=== PATIENT | male | born 1960 | race Caucasian/White ===

== ENCOUNTER → 2017-06-05 | Outpatient (CLI) | payer OTHER ==
[~2017-06-05] MED LIST: GEMFIBROZIL600 M1; INDERAL 40MG. T40 MG PO; LEVOTHYROXIN0.025 MG; METFORMIN 500M500 M1 PO; TAMSULOSIN HCL0.4 MG PO; TOPIRAMATE50 MG PO
--- NOTE | 2017-06-05 15:12 | RADIOLOGY REPORT PS360 ---
KNEE-4 OR 5 VIEWS-RT HISTORY: RT KNEE PAIN ORDERING PHYSICIAN: JUSTIN MARQUEZ MD PATIENT AGE: 57 years COMPARISON: 01/31/2016 FINDINGS: There are moderate osteoarthritic changes of the medial compartment and patellofemoral joint which is slightly progressed compared to the previous exam. There is mild lateral subluxation of the tibia by approximately 7 mm. No fracture or dislocation. No lytic or blastic change. IMPRESSION: Moderate osteoarthritic changes slightly progressed compared to the previous exam
== END ==
LOC: RAD 13:15
DX: M25.561 Pain in right knee (principal)

== ENCOUNTER → 2017-06-21 | Outpatient (CLI) | payer OTHER ==
--- NOTE | 2017-06-23 07:25 | RADIOLOGY REPORT PS360 ---
MRI-LOW EXT ANY JOINT W/O-RT HISTORY: Right knee pain, history of torn meniscus, pain along the medial side of the knee with instability and limited range of motion PRIMARY OSTEOARTHRITIS OF RIGHT KNEE ORDERING PHYSICIAN: JUSTIN MARQUEZ MD PATIENT AGE: 57 years COMPARISON: Radiograph of 06/05/2017 TECHNIQUE: Standard multiplanar multiecho sequences are performed without contrast. FINDINGS: Posterior cruciate ligament is intact. The fibers of the anterior cruciate ligament are sparse suggesting partial tear or ligamentous sprain. The collateral ligaments are intact. The patellar tendon and quadriceps tendon appear intact. There is complex tear involving the posterior horn of the medial meniscus with meniscal maceration. Lateral meniscus has an unremarkable appearance. There are mild to moderate tricompartmental osteoarthritic changes with decrease in the joint space, osteosclerosis, and osteophyte formation. 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 There is a small knee joint effusion. The patellar cartilage is slightly thinned. There is minimal lateral subluxation of the patella. IMPRESSION: 1. Complex tear/maceration of the posterior horn of the medial meniscus centrally 2. Osteoarthritic changes with osteochondrosis of the medial femoral condyle and mild amount of edema of the medial femoral condyle and medial tibial plateau. 3. Small knee joint effusion. 4. Sprain/partial tear of the ACL IMPRESSION:
== END ==
LOC: RAD 07:39
DX: M17.11 Unilateral primary osteoarthritis, right knee (principal)

== ENCOUNTER → 2017-07-15 | Outpatient (CLI) | payer OTHER ==
[2017-07-15 16:43] LABS: HEMOGLOBIN 14.8 g/dL (14.1-18.0); LYMPH # 3.1 K/mm3 (0.7-4.5)
--- NOTE | 2017-07-15 16:44 | RADIOLOGY REPORT PS360 ---
CHEST(2 VIEWS-NOT PORTABLE) HISTORY: HTN ORDERING PHYSICIAN: JUSTIN MARQUEZ MD PATIENT AGE: 57 years COMPARISON: None available FINDINGS: The cardiomediastinal silhouette and pulmonary vascularity are within normal limits. There is hyperinflation with upper lucency of the lungs consistent with COPD. No lobar consolidation or collapse.. No acute bony abnormalities. Degenerative changes thoracic spine IMPRESSION: COPD, no change with no acute finding
[2017-07-15 17:11] LABS: BUN 14 mg/dL (7-18)
[2017-07-15 17:12] LABS: GFR (ESTIMATED) 99 ML/MIN (>60)
== END ==
LOC: LAB 15:12
PROVIDERS: Orthopaedic Surgery
DX: S83.241A Other tear of medial meniscus, current injury, right knee, initial encounter (principal); Z01.810 Encounter for preprocedural cardiovascular examination; Z01.811 Encounter for preprocedural respiratory examination; Z01.812 Encounter for preprocedural laboratory examination